=== PATIENT | male | born 1935 | race Caucasian/White ===

== ENCOUNTER → 2017-08-05 | Outpatient (CLI) | payer OTHER ==
[~2017-08-05] VITALS: Ht 171.4 cm; Wt 65.8 kg
[~2017-08-05] MED LIST: ATORVASTATIN CA10 MG PO; CELEBREX100 MG PO; GLUCOSAMINE &1 EAC1 PO; METAMUCIL FIBE3.4 GM PO; OMEPRAZOLE40 M1 PO
[2017-08-05 10:21] LABS: HEMATOCRIT 35.5 % (38.0-50.0); MCH 30.9 PG (29.0-34.0); MCHC 34.4 G/DL (30.0-36.0); MCV 89.9 FL (86-99); MEAN PLAT.VOLUME 10.4 uM^3 (9.0-12.4); PLATELET COUNT 209 K/uL (156-360); RBC DIS.WIDTH-CV 12.6 % (11.8-14.6); RBC DIS.WIDTH-SD 41.5 % (39-53); RED BLOOD COUNT 3.95 M/uL (4.00-5.50); WHITE BLOOD COUNT 4.6 K/uL (4.1-10.2)
[2017-08-05 10:43] LABS: PROTHROMBIN TIME 11.5 SEC (10.2-12.9)
[2017-08-05 10:46] LABS: PTT 46.1 SEC (25-37)
== END | disposition home or self-care (01) ==
LOC: OPR 09:25 → EDSTATUS 10:00 → OPR 10:00
PROVIDERS: Internal Medicine Pulmonary Disease
PROC: 0BBG3ZX Excision of Left Upper Lung Lobe, Percutaneous Approach, Diagnostic (ICD-10-PCS; principal; 2017-08-05)
DX: R91.8 Other nonspecific abnormal finding of lung field (principal); Z87.891 Personal history of nicotine dependence; J84.9 Interstitial pulmonary disease, unspecified; J61 Pneumoconiosis due to asbestos and other mineral fibers; E78.5 Hyperlipidemia, unspecified; K21.9 Gastro-esophageal reflux disease without esophagitis; N40.0 Benign prostatic hyperplasia without lower urinary tract symptoms; M10.9 Gout, unspecified; Z80.0 Family history of malignant neoplasm of digestive organs; Z83.3 Family history of diabetes mellitus
CPT/HCPCS: 71010; 77012; 85027; 85610; 85730; 88305; 88341 TC; 88342 TC; J3010

== ENCOUNTER 2018-06-08 10:56 | Emergency (ER) | payer OTHER ==
[~2018-06-08] VITALS: Ht 172.7 cm; Wt 61.9 kg
[2018-06-08 11:39] LABS: HEMOGLOBIN 11.5 G/DL (12.5-16.6); MCH 30.3 PG (29.0-34.0); MCHC 34.8 G/DL (30.0-36.0); MCV 86.8 FL (86-99); PLATELET COUNT 188 K/uL (156-360); RBC DIS.WIDTH-CV 12.6 % (11.8-14.6); RBC DIS.WIDTH-SD 39.8 % (39-53); WHITE BLOOD COUNT 4.8 K/uL (4.1-10.2)
[2018-06-08 11:48] LABS: ALBUMIN 4.2 g/dL (3.2-4.8); CHLORIDE 101 mEq/L (99-109); POTASSIUM 4.1 mEq/L (3.7-5.4); SODIUM 139 mEq/L (136-147)
[2018-06-08 11:50] LABS: GLUCOSE 103 mg/dL (70-99); TOTAL PROTEIN 7.4 g/dL (6.4-8.3)
[2018-06-08 11:52] LABS: TOTAL BILIRUBIN 0.5 mg/dL (0.0-1.0)
[2018-06-08 11:54] LABS: ALKALINE PHOSPHATASE 79 IU/L (3-129); GFR ESTIMATE (CALCULATED) > 59 mL/min/ (58.99-99999)
[2018-06-08 11:55] LABS: UREA NITROGEN (BUN) 22 mg/dL (9-23)
[2018-06-08 11:56] LABS: AST (GOT) 18 IU/L (2-34)
[2018-06-08 11:57] LABS: ALT (GPT) 18 IU/L (3-49)
[2018-06-08 12:35] LABS: TROP-I INTERPRETATION NEGATIVE; TROPONIN-I < 0.01 ng/mL (0.0-0.30)
[2018-06-08 12:40] LABS: APPEARANCE SL.HAZY ((CLEAR)); BILIRUBIN NEGATIVE; BLOOD NEGATIVE; COLOR AMBER ((YELLOW)); GLUCOSE (STRIP) NEGATIVE; KETONES NEGATIVE; LEUKOCYTES NEGATIVE; NITRITE NEGATIVE; PROTEIN (STRIP) NEGATIVE; SPECIFIC GRAVITY 1.024 (1.000-1.030)
[2018-06-08 12:56] LABS: EPITHELIAL CELLS NONE SEEN /HPF; MUCUS 1+ /LPF; RED BLOOD CELLS 0-5 /HPF (0-5); WHITE BLOOD CELLS 0-5 /HPF (0-5)
[2018-06-08 12:57] LABS: BACTERIA RARE /HPF; UCUL ADDED? NO
[2018-06-08] MEDS ORDERED: PERCOCET 5/31 TABLET PO (14:14)
[2018-06-08 14:45] VITALS: BP 127/76
== END 2018-06-08 14:53 | disposition home or self-care (01) ==
LOC: EME 10:56
PROVIDERS: Emergency Medicine
DX: R10.32 Left lower quadrant pain (principal); J61 Pneumoconiosis due to asbestos and other mineral fibers; J43.9 Emphysema, unspecified; Z99.81 Dependence on supplemental oxygen; E78.5 Hyperlipidemia, unspecified; G89.29 Other chronic pain; Z87.891 Personal history of nicotine dependence
CPT/HCPCS: 71045; 74176; 80053; 81003; 83605; 83690; 84484; 85027; 93005; 99281; 99285; J7030